=== PATIENT | male | born 2000 | race Caucasian/White ===

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

== ENCOUNTER 2023-01-27 08:43 | Emergency (ER) | payer BC, OTHER ==
[~2023-01-27] VITALS: Ht 177.8 cm; Wt 87.7 kg
[2023-01-27] MEDS ORDERED: KETOROLAC TROMETH 30 MG/ML 1ML VIAL IV ONE (09:15)
[2023-01-27 09:22] LABS: Basophils # (auto) 0.1 10 ^3/uL (0-0.2); Basophils % (auto) 0.8 % (0.0-2.0); Eosinophils # (auto) 0.1 10 ^3/uL (0-0.8); Hematocrit 46.1 % (41.0-53.0); Hemoglobin 15.8 g/dL (13.5-17.5); Lymphocytes # (auto) 1.6 10 ^3/uL (0.4-5.4); Lymphocytes % (auto) 22.2 % (10.0-50.0); Mean Corpuscular Hemoglobin 31.8 pg (28.0-32.0); Mean Corpuscular Hgb Conc. 34.3 g/dL (32.0-36.0); Mean Corpuscular Volume 92.7 fL (80.0-100.0); Monocytes # (auto) 0.5 10 ^3/uL (0-1.3); Monocytes % (auto) 7.1 % (0.0-12.0); Neutrophils # (auto) 4.9 10 ^3/uL (1.6-8.6); Neutrophils % (auto) 68.9 % (37.0-80.0); Nucleated Red Blood Cells % 0.1 %; Red Blood Cells 4.97 10^6/uL (4.5-5.90); Red Cell Distribution Width 12.6 % (11.8-14.3); White Blood Cell 7.1 10^3/uL (4.4-10.8)
[2023-01-27 09:30] LABS: Albumin 4.2 g/dL (3.4-5.0); Calcium 8.7 mg/dL (8.5-10.1); Potassium 4.1 mmol/L (3.5-5.1)
[2023-01-27 09:33] LABS: BUN/Creatinine Ratio 16.1 (10.0-20.0); Bilirubin, Total 0.6 mg/dL (0.2-1.0); Total Protein 7.4 g/dL (6.4-8.2)
[2023-01-27] MEDS ORDERED: FAMO20TA10 PO (10:15)
[2023-01-27 12:11] VITALS: BP 107/65
== END 2023-01-27 12:14 | disposition home or self-care (01) ==
LOC: ER 08:43 → EDBD 08:43 → ER 12:14
DX: K52.9 Noninfective gastroenteritis and colitis, unspecified (principal); K29.70 Gastritis, unspecified, without bleeding; Z88.8 Allergy status to other drugs, medicaments and biological substances
CPT/HCPCS: 36415; 74176; 80053; 83605; 83690; 85025; 87040; 96374; 99285; J1885

== ENCOUNTER 2024-05-20 18:37 | Emergency (ER) | payer BC, OTHER ==
[~2024-05-20] VITALS: Ht 183.5 cm; Wt 200.0 kg
[~2024-05-20 18:37] MED LIST: FAMO20TA10 PO
[2024-05-20] MEDS ORDERED: IBUP-1455 PO (20:57)
[2024-05-20] MEDS ORDERED: CYCL-839 PO (20:57)
[2024-05-20] MEDS: HYDROcodone-ACET 10/325MG TAB PO ONE (22:03)
[2024-05-20 22:10] VITALS: PULSE 84; RESP 16; O2SAT 98
[2024-05-20 22:16] VITALS: BP 125/78; PULSE 84; RESP 16; TEMP 99.4; O2SAT 98
== END 2024-05-20 22:15 | disposition home or self-care (01) ==
LOC: ER 18:37 → EDBD 18:37 → ER 22:15
DX: R51.9 Headache, unspecified (principal); R10.9 Unspecified abdominal pain; Z88.8 Allergy status to other drugs, medicaments and biological substances; Z79.1 Long term (current) use of non-steroidal anti-inflammatories (NSAID); Z79.899 Other long term (current) drug therapy; V89.2XXA Person injured in unspecified motor-vehicle accident, traffic, initial encounter; Y93.89 Activity, other specified; Y92.89 Other specified places as the place of occurrence of the external cause; Y99.8 Other external cause status
CPT/HCPCS: 70450; 71250; 74176; 93005